=== PATIENT | male | born 1975 | race Hispanic/Latino ===

== ENCOUNTER → 2018-06-21 | Outpatient (CLI) | payer OTHER ==
[~2018-06-21] MED LIST: ALPRAZOLAM0.25 M2 PO; AMOX TR-K CLV1 EAC4 PO; AMOXICILLIN500 MG PO; ASCORBIC ACID500 M3 PO; ASPIRIN81 M2 PO; CIDER VINEGAR PO; COLACE100 MG PO; CYMBALTA30 MG PO; ENOXAPARIN30 MG/0.3 SC; FLEXERIL10 MG PO; FOLIC ACID1 MG PO; IRON325 M1 PO; LIDODERM 5% P1 PATCH TD; LITE COAT ASPI325 M1 PO; LYRICA100 MG PO; MEN'S MULTIVI200 MCG PO; MIRALAX17 GM PO; MULTI VITAMIN1 EACH PO; NAPROXEN500 MG PO; OIL OF OREGAN1500 MG PO; OXYCODONE HCL10 MG PO; PERCOCET 5/31 TABLET PO; PROBIOTIC1 EAC1 PO; PROVENTIL HFA6.7 GM IH; RABANO YOD50 MG/15 M PO; RECTICARE30 GM TP; ROBITUSSIN AC,T10 ML PO; SENOKOT S,PE1 TABLET PO; SULFAMETHOXAZO1 EAC4 PO; TORADOL10 MG PO; TUMERIC PO; TUMS500 MG PO; ULTRAM50 MG PO; VENTOLIN HFA18 GM IH; VITAMIN C1000 MG PO; VITAMIN D31000 UNI2 PO; VITAMIN D31000 UNIT PO; ZITHROMAX Z-PA250 MG PO; ZOLOFT50 MG PO
== END | disposition home or self-care (01) ==
LOC: RAD 13:00 → AMB 13:00 → RAD 13:23
DX: M54.5 Low back pain (principal); M51.36 Other intervertebral disc degeneration, lumbar region; G89.4 Chronic pain syndrome; M51.26 Other intervertebral disc displacement, lumbar region; M46.1 Sacroiliitis, not elsewhere classified; M25.551 Pain in right hip; M70.61 Trochanteric bursitis, right hip
CPT/HCPCS: 77012; J1030